=== PATIENT | female | born 1985 | race Two or more races ===

== ENCOUNTER 2016-12-24 15:40 | Observation (INO) | payer BC ==
[2016-12-24 17:01] LABS: Urine Bilirubin Negative (Negative); Urine Color Yellow (Yellow); Urine Glucose Normal (Normal); Urine Ketone Negative (Negative); Urine Nitrite Negative (Negative); Urine RBC 9 /hpf (0 - 4); Urine Squamous Epithelial Cell FEW /hpf (<5); Urine Urobilinogen Normal (Negative); Urine pH 6.5 (5.0-8.0)
[2016-12-24 17:03] LABS: Urine Blood 1+ /uL (Negative)
== END 2016-12-24 16:35 | disposition home or self-care (01) | DRG 998 ==
LOC: LDRP 15:40
PROVIDERS: ADMIT Obstetrics & Gynecology; ATTEND Obstetrics & Gynecology
DX: O23.40 Unspecified infection of urinary tract in pregnancy, unspecified trimester (principal); O26.859 Spotting complicating pregnancy, unspecified trimester; Z3A.00 Weeks of gestation of pregnancy not specified
CPT/HCPCS: 59025; 76815; 81001; 81002; G0378

== ENCOUNTER 2017-01-30 16:00 | Observation (INO) | payer BC ==
[~2017-01-30] VITALS: Ht 152.4 cm; Wt 84.4 kg
[2017-01-30] MEDS: TERBUTALINE SULFATE 1 MG/ML 1ML VIAL SC SCH ×2 (17:16→17:43)
== END 2017-01-30 19:33 | disposition home or self-care (01) | DRG 781 ==
LOC: LDRP 16:00
PROVIDERS: ADMIT Specialist; ATTEND Specialist
DX: O26.893 Other specified pregnancy related conditions, third trimester (principal); R10.9 Unspecified abdominal pain; O99.89 Other specified diseases and conditions complicating pregnancy, childbirth and the puerperium; M54.9 Dorsalgia, unspecified; O24.410 Gestational diabetes mellitus in pregnancy, diet controlled; Z3A.33 33 weeks gestation of pregnancy
CPT/HCPCS: 59025; 81002; 82962; 87086; 94760; 96372; G0378; J3105